=== PATIENT | female | born 1940 | race Hispanic/Latino ===

== ENCOUNTER 2017-03-03 06:18 | Day surgery (SDC) | payer MEDICARE, BC ==
[2017-02-18 11:47] VITALS: BMI 32.8
[2017-03-03] MEDS ORDERED: Lidocaine 1% Inj (20ml) ONE (08:00)
[2017-03-03] MEDS ORDERED: Propofol 10 mg/ml Inj (20 ML) ONE (08:00)
[2017-03-03] MEDS ORDERED: Sodium Chloride 0.9% 1,000 ML IV SCH (08:30)
[2017-03-03 09:37] VITALS: TEMP 97.8
[2017-03-03 09:39] VITALS: PULSE 75; RESP 16
[2017-03-03 10:07] VITALS: BP 153/60; O2SAT 100
== END 2017-03-03 10:35 | disposition home or self-care (01) ==
LOC: ENDO 06:18
PROVIDERS: ATTEND Specialist
DX: K22.10 Ulcer of esophagus without bleeding (principal); K44.9 Diaphragmatic hernia without obstruction or gangrene; K21.9 Gastro-esophageal reflux disease without esophagitis; I10 Essential (primary) hypertension
CPT/HCPCS: 43239; 43255; 88305; 88312; J0171; J2704; J7040 ×2

== ENCOUNTER 2017-12-30 06:18 | Day surgery (SDC) | payer MEDICARE, BC ==
[2017-12-23 08:43] VITALS: BMI 33.8
[2017-12-30] MEDS ORDERED: Propofol 10 mg/ml Inj (20 ML) ONE (08:01)
[2017-12-30] MEDS ORDERED: Sodium Chloride 0.9% 1,000 ML IV SCH (08:45)
[2017-12-30] MEDS ORDERED: Succinylcholine 200 mg/10 ml Inj IV ONE (08:50)
[2017-12-30] MEDS ORDERED: Labetalol 5 mg/ml Inj 20ML IV ONE ×8 (09:00→09:35)
[2017-12-30] MEDS ORDERED: Labetalol 5 mg/ml Inj 20ML ONE ×2 (09:04→09:15)
[2017-12-30] MEDS ORDERED: Labetalol 5 mg/ml Inj 20ML IV PRN (09:47)
[2017-12-30 11:17] VITALS: TEMP 97.7
[2017-12-30 11:18] VITALS: BP 123/80; PULSE 70; RESP 18; O2SAT 98
== END 2017-12-30 12:00 | disposition home or self-care (01) ==
LOC: ENDO 06:18
PROVIDERS: ATTEND Specialist
DX: K22.10 Ulcer of esophagus without bleeding (principal); K44.9 Diaphragmatic hernia without obstruction or gangrene; K21.9 Gastro-esophageal reflux disease without esophagitis; I10 Essential (primary) hypertension; M81.0 Age-related osteoporosis without current pathological fracture; Z98.84 Bariatric surgery status
CPT/HCPCS: 43239; 43255; 88305; 88312; J0171; J0330; J0360; J2001; J2704; J7030; J7040